=== PATIENT | female | born 1955 | race Caucasian/White ===

== ENCOUNTER 2019-08-11 11:08 | Inpatient (IN) | payer OTHER, SELFPAY ==
[2019-08-02 12:43] VITALS: BMI 31.3
[2019-08-11] VITALS (22 sets, daily range): BP systolic 151–192; BP diastolic 80–108; PULSE 70–89; RESP 1–20; TEMP 35.8–37; O2SAT 91–100; BMI 31.3
--- NOTE | 2019-08-11 | DI.RAD.S_ITS ---
PROCEDURE: XR CERVICAL SPINE 2V OR 3V INDICATIONS: C3-C6 ACDF WITH ANTERIOR INSTRUMENTATION TECHNIQUE: 2 view(s) of the cervical spine were acquired. COMPARISON: None. FINDINGS: Bones: No fractures or dislocations to the T1 level. The lateral masses of C1 appear intact on the odontoid view. No suspicious bony lesions. C3-C6 anterior fusion plate has been placed, with what appears to be interbody disc prosthesis device is at the intervening disc levels. Normal alignment is established. Soft tissues: No prevertebral soft tissue swelling. IMPRESSION: Normal alignment established through anterior fusion plating and interbody disc prosthesis placement, C3-C6 anteriorly. Dictated by: Humphrey Mittal M.D. on 08/11/2019 at 16:08 Approved by: Humphrey Mittal M.D. on 08/11/2019 at 16:10
[2019-08-11] MEDS: LACTATED RINGERS 1,000 ML 42 ML IV ×2 (11:47→15:16)
[2019-08-11] MEDS: CEFAZOLIN 2 GM/100 ML FROZ.PIGGY IV ×2 (12:55→21:30)
--- NOTE | 2019-08-11 13:33 | SUR.OPER ---
Supine, head on gel donut. Arms padded with gel pads, tucked at sides, towel roll under shoulders. Safety belt at thigh. Legs uncrossed.
[2019-08-11] MEDS: BUPIVACAINE 0.25% W/ EPI (PF) 10 ML VIAL 20 ML INJ (13:42)
[2019-08-11] MEDS: ACETAMINOPHEN IV 1,000 MG/100 ML VIAL 400 MG IV (15:15)
--- NOTE | 2019-08-11 16:01 | PM.OP.1 ---
Operative Date/Time/Diagnoses Date of procedure: 08/11/19 Time of procedure: 13:01 Pre-op diagnosis: 1. C3-4, C4-5, C5-6 spinal stenosis 2. C3-4, C4-5, C5-6 spondylosis with radiculopathy Post-op diagnosis: same Procedure & Clinicians Procedure: 1. C3-4, C4-5, C5-6 anterior cervical diskectomy and fusion 2. C3-4, C4-5, C5-6 anterior interbody cage placement 3. C3-4, C4-5, C5-6 anterior instrumentation with plate and screw placement in C4-C5-C6 and C7 vertebrae 4. Utilization of microsurgical technique and operating microscope Same procedure as scheduled: Yes Indications: Patient has been having chronic neck pain and worsening cervical radiculopathy. Patient failed multiple conservative management with worsening pain weakness and numbness in her upper extremity. Patient has been having difficulty performing activity of daily living. After discussing risks benefits of treatment options, patient elected proceed with surgery. Surgeon: Ivet Ayala Adzing And Boring Machine Helper: Neva Bradley Click Yes if Unassisted: No Anesthesia Type: General Operative Notes Closure Type: primary Specimen(s): none sent Prosthetic devices, grafts, tissues, transplants, or devices: Globus Extend plate, PEEK cages Applied: catheter Estimated Blood Loss (mL): 50 Blood products transfused: none Procedure in detail: Patient was seen in the preoperative area. Risks and benefits of the surgery was discussed with the patient. Operative consent was obtained and placed in the chart. Patient was then taken to the operative room. Prophylactic antibiotic was given less than 0.5 hr prior to skin incision. General anesthesia was administered. Patient was placed into a supine position on her radiolucent table. Bilateral shoulders were taped down to allow proper C-arm imaging. Anterior cervical area was prepped and draped in a sterile fashion. Time-out was performed at this time. Using lateral C-arm imaging, the level between C3 and C6 was identified and marked on patient's neck. A oblique incision from midline towards medial border of sternocleidomastoid muscle was made. The platysma muscle was incised in line with skin incision. Metzenbaum scissor was used to develop the plane between the medial border of sternocleidomastoid d and the strap muscles medially. The carotid sheath and its contents were identified and protected behind the hand-held retractor during the entire case. The plane between the carotid sheath and strap muscles was developed with Metzenbaum scissors. Dissection was made down to the level of the anterior cervical fascia. Longus colli muscle was incised on the anterior aspect of vertebral bodies bilaterally from C3-C6. Spinal needle was placed into the C3-4 disc space and confirmed with lateral C-arm imaging. Using microsurgical technique and operative microscope, anterior cervical diskectomy was performed at C3-4 C4-5 and C5-6 level. This was done by removing the disc material, removing the anterior and posterior osteophytes posterior longitudinal ligaments along with performing bilateral foraminotomies at all 3 levels. Patient was found to have severe central and foraminal stenosis at all 3 levels. Patient's stenosis was fully decompressed after decompression was completed. After the diskectomy was completed, 3 anterior interbody cages were obtained. The cages were packed with globus via cell bone grafting material. One cage each along with the bone grafting material was then packed into the interbody spaces from C3-C6 with one cage into each interbody level. After the cages were placed, the anterior cervical plate was stabilized to the C3-C6 vertebrae using 2 screws at each each level. Total 8 screws were placed. After confirming placement of the hardware with AP and lateral C-arm imaging, the screws were locked into the plate using the locking mechanism and torque limiting screwdriver. After the hardware was placed and confirmed with AP and lateral C-arm imaging, the wound was irrigated with sterile normal saline. The platysma muscle and the subcutaneous tissue was closed with 2-0 Vicryl. The skin was closed with 4-0 Monocryl and Steri-Strips. Patient tolerated the procedure well. Patient was transferred recovery room in stable condition. There were no complications. Complications: none Post-operative Condition: stable Disposition: PACU Plan for aftercare: Admit to inpatient hospital
[2019-08-11] MEDS: HYDROMORPHONE 2 MG INJ IV ×4 (16:19→16:35)
[2019-08-11] MEDS: hydrOXYzine 50 MG/ML INJ 25 MG IM (16:36)
[2019-08-11] MEDS: LORazepam 2 MG/ML INJ 0.5 MG IV (17:00)
[2019-08-11] MEDS: HYDROMORPHONE 0.5 MG INJ IV ×2 (17:49→23:56)
[2019-08-11] MEDS: SODIUM CHLORIDE 0.9% 1,000 ML 100 ML IV (17:50)
[2019-08-11] MEDS: OXYCODONE IR 5 MG TABLET 10 MG PO ×2 (18:21→21:29)
--- NOTE | 2019-08-11 18:23 | PC.NURSE ---
Pt arrived from PACU at 1735. A/Ox4. Rates pain 10/10. Medicated with 0.5 mg Dilaudid IV. BP elevated. 3L NC sats 96%. CPOX on. Drsg to ant neck c/d/i. Soft collar on. CMS+. Miller draining to gravity. Oriented to room and call system. Supportive spouse arrived. Belongings including C-Pap retrieved from PACU. Upon reassessment of Pain level remains elevated at 9/10; 10 mg oxycodone administered and ice pack to posterior neck. Plan to page provider if pain and BP is not improved upon reassessment.
[2019-08-11] MEDS: SENNOSIDES 8.6 MG TABLET 17.2 MG PO (21:29)
[2019-08-11] MEDS: DOCUSATE 100 MG CAPSULE PO (21:29)
--- NOTE | 2019-08-11 22:06 | PC.NURSE ---
Dr. Ayala notified for elevated BP. PRN order for hydralazine rec. awaiting pharm verfication.
[2019-08-11] MEDS: HYDRALAZINE 20 MG/ML VIAL 5 MG IV (22:40)
[2019-08-12 00:13] VITALS: BP 147/89; PULSE 71
[2019-08-12 00:15] VITALS: BP 147/89; PULSE 71; O2SAT 94
[2019-08-12] MEDS: OXYCODONE IR 5 MG TABLET 10 MG PO ×3 (00:41→08:19)
[2019-08-12] MEDS: HYDROMORPHONE 0.5 MG INJ IV (02:57)
[2019-08-12] MEDS: CEFAZOLIN 2 GM/100 ML FROZ.PIGGY IV (04:28)
[2019-08-12 04:45] VITALS: BP 153/72; PULSE 77; RESP 14; TEMP 37.1; O2SAT 97
[2019-08-12 08:00] VITALS: BP 152/81; PULSE 74; RESP 12; TEMP 36.6; O2SAT 97
[2019-08-12] MEDS: ACETAMINOPHEN 325 MG TABLET 650 MG PO (08:19)
[2019-08-12] MEDS: SODIUM CHLORIDE 0.9% FLUSH 10 ML IV (08:20)
[2019-08-12] MEDS: DOCUSATE 100 MG CAPSULE PO (08:20)
--- NOTE | 2019-08-12 10:22 | PT.IIE ---
Current Diagnoses Other spondylosis with radiculopathy, cervical region (08/11/19) Spinal stenosis, cervical region (08/11/19) Surgery Performed Operation Date: 08/11/19 13:15 Actual Procedures p C3-4,C4-5,C5-6 ACDF w/Anterior instrumentation - Ivet Ayala MD Surgical History (Last Updated 08/02/19 @ 13:08 by Ashley Santizo RN) History of cardiac radiofrequency ablation (Acute ~01/18/19) History of lumbar spinal fusion (Acute 08/10/14) History of lumbar surgery (Acute ~1985) History of total left hip arthroplasty (Acute ~2012) History of total right hip arthroplasty (Acute ~2013) Hx of cholecystectomy (Acute) Hx of laminectomy (Acute ~1982) Hx of tooth extraction (Acute ~04/2014) Status post trigger finger release (Acute ~2016) Medical History (Last Updated 08/02/19 @ 13:13 by Ashley Santizo RN) Arthritis (Acute) Depression (Acute) Diabetes (Acute) Fatty liver (Acute) GERD (gastroesophageal reflux disease) (Acute) HTN (hypertension) (Acute) MIGUEL A on CPAP (Acute) Osteoarthritis (Acute) PAF (paroxysmal atrial fibrillation) (Acute) Physical Therapy Inpatient Evaluation/Re-Eval M1 PT/OT-IP Prior Functional Status Start: 08/12/19 12:48 Freq: NEEDED Status: Active Protocol: Document 08/12/19 10:22 AB (Rec: 08/12/19 12:58 AB [id number]) Medical Review Prior Functional Status Medical History Reviewed Yes Communication able to make needs known Mobility and Gait pt stated that she is independent with all mobilities and ambulation without AD Social History Household Members spouse Living Arrangements House Number of Floors (Floors) One Floor Number of Stairs To Enter/Railing? 2 steps with R rail descending Home Environment High Toilet,Tub/Shower Home Equipment Front Wheel Walker Additional Social History Comment pt lives with spouse and can assist pt but a friend also will assist pt when spouse is at work M2 PT-IP Current Condition Start: 08/12/19 12:48 Freq: NEEDED Status: Active Protocol: Document 08/12/19 10:22 AB (Rec: 08/12/19 12:58 AB [id number]) Physical Therapy Current Condition Current Condition Evaluation Date 08/12/19 Treatment Diagnosis s/p C3-6 ACDF; difficulty in walking Onset Date 08/11/2019 Precautions Cervical Spine Precautions Soft Collar for Comfort,No Heavy Lifting,Log Roll M3 PT-IP Subjective Start: 08/12/19 12:48 Freq: NEEDED Status: Active Protocol: Document 08/12/19 10:22 AB (Rec: 08/12/19 12:58 AB [id number]) Subjective Physical Therapy Visit Type Type Initial Evaluation Visit Start Time 10:22 Visit Stop Time 10:44 Total Visit Minutes 22 Number of CAKE MAKER Visits 0 Physical Therapy Visit Comments Patient Comments pt agreeable to do PT Therapy Pain Assessment Pain When Pain Assessed At Rest Pain Present Pain Present Pain Reported Location Neck Intensity 7 Scale Used Numeric (1 - 10) Left Upper Arm Intensity 6 Scale Used Numeric (1 - 10) M4 PT-IP Mobility and Gait Start: 08/12/19 12:48 Freq: NEEDED Status: Active Protocol: Document 08/12/19 10:22 AB (Rec: 08/12/19 12:58 AB [id number]) PT-Bed Mobility Assessment Rolling Type of Rolling Log Rolling Level of Assist Independent Supine to Sit Supine to Sit Independent Sit to Supine Sit to Supine Independent PT-Transfer Assessment Sit to and From Stand Sit to and from Stand Independent Equipment Transfer Assistive Device Bed Rail Transfers Transfer Destination Bed,Toilet Transfer Technique ambulated without AD Transfer Ability Level of Assist Standby Assistance Comments Mobility Comments checked on pt and pt using the toilet. ambulated out of the toilet using FWW SBA and ambulated to the sink. completed handwashing and was able to maintain standing SBA. pt ambulated to the EOB SBA without AD. educated pt on precautions and log roll bed mobility and pt completed bed mobility independent. pt ambulated without AD to the sink. educated on soft collar management and pt was able to put soft collar on by herself. pt ambulated towards the stair without AD and completed. ambulated back to the room. pt sat on EOB and left with family in room. Gait Assessment Gait Gait Assistance Required: Standby Assistance Distance (Feet) 300 Able to Maintain Weight Bearing Status Yes During Gait Assistive Devices Assistive Device None,Gait Belt Orthotic/Prosthetic Devices or Brace: Yes Gait Deviations General Gait Pattern Within Normal Limits Factors Limiting Gait Function Factors Limiting Gait Function Limited Range of Motion,Pain Stair Climbing Assessment Evaluation Level of Assist On Stairs Standby Assistance Devices Stair Climbing Assistive Devices Left Railing Technique/Endurance Stair Climbing Direction Ascend and Descend Stair Climbing Technique Step to Step Number of Steps Climbed 3 Query Text: Stair Climbing Set # Repetitions (reps) 1 PT-Balance Assessment Sitting Balance and Reactions Static Sitting Balance Ability Normal Dynamic Sitting Balance Ability Normal Standing Balance and Reactions Static Standing Balance Ability Good Dynamic Standing Balance Ability Good Device Used without AD M5 PT-IP Objective Assessments Start: 08/12/19 12:48 Freq: NEEDED Status: Active Protocol: Document 08/12/19 10:22 AB (Rec: 08/12/19 12:58 AB [id number]) Orientation Orientation/Cognition Level of Alertness Alert Orientation Name,Age,Birthday,Month,Date, Year,Day of Week,Place, Situation Language Function Ability No Deficits Noted Safety Awareness Understands Safety Issues Memory Description No Deficits Noted Gross Range of Motion Lower Extremity ROM Assessment Within Functional Limits Strength Lower Extremity Strength Assessment Within Functional Limits Coordination Assessment Gross Coordination Gross Coordination WNL Muscle Tone Muscle Tone WNL Yes M6 PT-IP Treatment Start: 08/12/19 12:48 Freq: NEEDED Status: Active Protocol: Document 08/12/19 10:22 AB (Rec: 08/12/19 12:58 AB [id number]) Physical Therapy Treatment Education Education Provided Precautions,Post-Op Packet, Safety Brace Education Donning,[place],Patient M7 PT-IP Assessment and Plan Start: 08/12/19 12:48 Freq: NEEDED Status: Active Protocol: Document 08/12/19 10:22 AB (Rec: 08/12/19 12:58 AB [id number]) PT Summary Assessment and Plan Potential Rehabilitation Potential Excellent Status of Condition at Evaluation Stable Summary Impairments Pain,ROM,Strength,Balance,Bed Mobility,Transfers,Gait, Activity Tolerance Assessment Summary pt is doing well with mobility and plans to go home later today depending on pain control but pt may go home mobility licea with assist from family. Goals Transfer Goal Independent Gait Goal Independent Gait Distance 350 Other Goals up/down 3 steps 1 rail mod I Days to Meet Goals 3 Frequency of Treatment Frequency Of Treatment Twice a Day Treatment Plan Physical Therapy Treatment Plan Bed Mobility Training,Transfer Training,Gait Training, Therapeutic Exercise,Balance Retraining,Post Op Education, Discharge Planning,Hot or Cold Pack,Neuromuscular Re-ed, Coordination Retraining,Manual Therapy Recommendations To Nursing Amount of Assist Needed Standby Assistance Discharge Recommendations PT Discharge Recommendations Home with Assistance
--- NOTE | 2019-08-12 10:44 | PM.DS.1 ---
History of Present Illness History of Present Illness Date Patient Seen: 08/12/19 Time Patient Seen: 11:05 Chief complaint: [id number] Narrative: Please see HPI previously recorded in the chart. Discharge Providers Provider Date of admission: 08/11/19 11:08 Discharge Date: 08/12/19 Primary care physician: JEMMA Page Consults: 08/11/19 12:12 Consult to Respiratory Therapy Evaluate & Treat Comment: Physician Instructions: Evaluate and treat 08/11/19 17:37 Consult to Occupational Therapy Evaluate & Treat Comment: Physician Instructions: Evaluate and treat Consult to Physical Therapy Evaluate & Treat Comment: Physician Instructions: Evaluate and Treat Discharge provider: Neva Bradley PA-C Summary Hospital Course Discharge Diagnosis: s/p C3-4, C4-5, C5-6 ACDF Hospital Course: Patient is a 63 year old female who has been having chronic neck pain and worsening cervical radiculopathy. Patient failed multiple conservative management with worsening pain weakness and numbness in her upper extremity. Patient has been having difficulty performing activity of daily living. After discussing risks benefits of treatment options, patient elected proceed with surgery. After obtaining informed consent patient was taken to the operating room where she underwent a C3-4, C4-5, C5-[address] Ayala which she tolerated well with no complications. She was then transferred to the acute care floor where she has been progressing well post operatively. Pain was moderate to severe overnight, responded to Oxycodone and IV Dilaudid. Will transition to oral Dilaudid today and likely discharge home with this. She has mobilized with PT. She reported some discomfort with the dressing so this was changed. She has a soft cervical collar for comfort. She is stable for discharge to home later today. Status at Discharge Cognitive/behavioral status at discharge: oriented Functional status at discharge: uses cane/walker Overall status at discharge: patient is progressing back to baseline Exam Vital Signs (past 8 hours): - 08/12/19 04:45 08/12/19 08:00 Temperature 98.8 F 97.8 F Pulse Rate 77 74 Respiratory Rate 14 12 Blood Pressure 153/72 H 152/81 H Pulse Oximetry 97 97 Oxygen Delivery Method Nasal Cannula Oxygen Flow Rate 0 Narrative Exam Narrative: 63 year old female sitting upright in bed. Alert and oriented in no acute distress. Dressing in place over cervical spine was redressed due to patient discomfort. Inspector Hot Forgings strength is equal. Sensation intact to light touch in BUE. Discharge Plan Discharge Plan Patient Disposition: Home Discharge orders & Medications Prescriptions: New acetaminophen 325 mg Tablet 650 mg PO Q6HR PRN (Reason: Pain, Mild (1-3)) Qty: 40 RF: 0 hydromorphone 2 mg Tablet 2 mg PO Q4-6H PRN (Reason: Pain, Moderate (4-6)) Qty: 60 RF: 0 docusate sodium [DOK] 100 mg Capsule 100 mg PO BID Qty: 40 RF: 0 hydroxyzine pamoate 25 mg Capsule 25 mg PO Q4HR PRN (Reason: Nausea And Vomiting) Qty: 60 RF: 0 oxycodone 5 mg capsule 5 mg PO Q4-6H PRN (Reason: Pain, Severe (7-10)) Qty: 60 RF: 0 Continued aspirin 325 MG tablet 325 mg PO QDAY Qty: 0 RF: 0 Follow up/Referrals: Ivet Ayala MD [Physician] - Diet/Activity/Treatments Diet: Diet as Tolerated Activity: No bending, lifting, or twisting. Wear cervical collar for comfort. Cold/Heat Therapy: You may use ice packs as needed. Allow skin to return to room temperature between icing. Skin/Wound/Dressing Care Report to your healthcare provider any signs of infection, such as:: chills, fever, night sweats, unusual drainage and unusual redness Dressing: Dressing is to remain in place until your 2 week post operative visit. Please call the office if dressing becomes saturated or soiled. Visit Report/Discharge Packet Instructions: DI for Prescription Opioid Use, Hydromorphone, Hydroxyzine Discharge Data Primary Care Provider: Tennille Wilkinson
[2019-08-12] MEDS: HYDROMORPHONE 2 MG TABLET PO (11:04)
--- NOTE | 2019-08-12 11:43 | CM.DANOTE ---
DCP: Case received, EMR reviewed and met with patient. , Alfredo, also present in room. Introduced self and role. Was able to obtain baseline history and activity information from patient. DCP assessment completed with information currently available. Patient is a 63 year old female who admitted yesterday morning to the care of the orthopedic team. PCP: Dr. Wilkinson. Payer: confirmed: [facility] Ad[employer]age. Patient came to the hospital for a surgical procedure. She had C3-4, C-5, C5-6 Cervical Diskectomy and fusion. Waited to meet patient until late morning, for she was having some increased pain and discomfort with her neck bandage. Spoke to PAMechelle, who stated that patient should be discharged today if stable on pain. Nurse, Doris, was in room and mentioned that patient still needs to void, and need to ensure that her pain medication is working. Met with patient in her room. , Alfredo, also present. Patient is alert and oriented. Was laying in bed with her neck collar in place. Patient confirmed that she is independent at home, had already been walking witn P.T. She resides in [place] with her spouse. Stated that she has a friend named Emilia, who will also be helping her out while she is recuperating. Patient mentioned that she had the neck surgery, for she was also having pain that was radiating down her arm. P: Patient should be able to go home today as long as she is able to void, since her catheter was just removed. She was given more water to drink. Also need to ensure that pain medication is working. Elva Juarez RN/[facility]
--- NOTE | 2019-08-12 12:40 | PC.NURSE ---
Addendum entered by Bernice Blevins R.N. 08/12/19 14:18: returned. D/c instructions provided to pt and . aware of f/u apts with Dr Ayala's office. Pt states she is taking everything with her including her CPAP. aware to contact MD with any additional questions or concerns. left in w/c with [employer] escort. Original Note: Discharge Pt states pain is down to 8/10 after PO dilaudid. Spoke with pt and she stated that pain was better controlled with oxycodone that PO dilaudid. She states pain decreased more and lasted longer with oxy that dilaudid. She requested oxy for d/c Rx. This was provided for her. PO dilaudid Rx was ripped up and placed in shredder bin. Rx given to to go fill in town. He will return with pills for d/c.
[2019-08-12] MEDS: OXYCODONE IR 10 MG TABLET PO (14:08)
--- NOTE | 2019-08-12 14:20 | OT.IPNOTE ---
Attempted to see pt for OT eval. Pt states she has already been up and is able to do everything she needs to. Discussed home safety and equipment needs. No OT eval performed. Per P.T. pt was able to don pants and shoes and is mobilizing well at this time. Will discharge OT order.
== END 2019-08-12 14:15 | disposition home or self-care (01) | DRG 473 ==
PROVIDERS: Admitting Provider Orthopaedic Surgery Orthopaedic Surgery of the Spine; Family Provider Nurse Practitioner; PCP Nurse Practitioner; Visit Provider Orthopaedic Surgery Orthopaedic Surgery of the Spine
PROC: 0RG20A0 Fusion of 2 or more Cervical Vertebral Joints with Interbody Fusion Device, Anterior Approach, Anterior Column, Open Approach (ICD-10-PCS; principal; 2019-08-11 13:15)
DX: M48.02 Spinal stenosis, cervical region (principal); E11.9 Type 2 diabetes mellitus without complications; F32.9 Major depressive disorder, single episode, unspecified; M47.22 Other spondylosis with radiculopathy, cervical region; F17.210 Nicotine dependence, cigarettes, uncomplicated; E66.9 Obesity, unspecified; Z68.31 Body mass index [BMI] 31.0-31.9, adult
CPT/HCPCS: 72040; 76000; 97161; C1776; J0131; J0330; J0360; J0690; J1100; J1170; J2060; J2405; J2704; J3010; J3410

== ENCOUNTER → 2020-04-25 13:33 | Outpatient (CLI) | payer OTHER, SELFPAY ==
[2019-08-11 17:42] VITALS: BMI 31.3
--- NOTE | 2020-04-25 | DI.MRI.S_ITS ---
PROCEDURE: MR SHOULDER LT WO CON INDICATIONS: Other specified disorders of tendon, left shoulder TECHNIQUE: Noncontrast oblique coronal T2 fast spin echo with fat saturation, oblique sagittal T1 spin echo and T2 fast spin echo with fat saturation, axial T1 spin echo and T2 fast spin echo with fat saturation through the shoulder. COMPARISON: [facility], CR, XR SHOULDER 2+ VIEWS LEFT, 01/15/2020, 15:52. FINDINGS: Image quality: Excellent. Rotator cuff: There is full-thickness tearing of the mid/anterior supraspinatus tendon at the humeral insertion site measuring 17 mm anteroposterior. There is high-grade partial-thickness articular surface tearing of posterior supraspinatus tendon at the humeral insertion site extending to the musculotendinous junction measuring roughly 10 mm anteroposterior. Moderate supraspinatus atrophy is present. Teres minor tendon is intact. Infraspinatus tendon demonstrates low-grade partial-thickness tearing of its anterior, mid, and posterior aspect at the humeral insertion site extending to the musculotendinous junction. Subscapularis is intact. Bones and bursae: No bone marrow contusions or fractures. Severe acromioclavicular joint degeneration. The acromion demonstrates conventional anatomy, without an os acromiale. Small amount of subacromial-subdeltoid or subcoracoid bursal fluid is present. Capsule and soft tissues: Amorphous high signal intensity within the posterior and anterior labrum. The long head of the biceps tendon demonstrates normal location and moderate to high-grade tearing. The rotator interval appears normal, without fibrosis. The coracohumeral ligament is normal in thickness. IMPRESSION: 1. Full-thickness and high-grade partial-thickness tearing of the supraspinatus tendon as described above associated with supraspinatus atrophy. 2. Low-grade partial-thickness articular surface tearing of the infraspinatus tendon. 3. Acromioclavicular joint osteoarthritis. 4. Subacromial bursitis. 5. Glenoid labral tearing. 6. Partial thickness biceps tendon tear. Dictated by: Po Ovalles M.D. on 04/25/2020 at 15:42 Approved by: Po Ovalles M.D. on 04/25/2020 at 15:45
== END ==
PROVIDERS: Family Provider Nurse Practitioner; PCP Nurse Practitioner; Referring Provider Nurse Practitioner; Visit Provider Orthopaedic Surgery
DX: M67.814 Other specified disorders of tendon, left shoulder (principal); M75.122 Complete rotator cuff tear or rupture of left shoulder, not specified as traumatic; M19.012 Primary osteoarthritis, left shoulder; M75.52 Bursitis of left shoulder; S43.492A Other sprain of left shoulder joint, initial encounter; S46.112A Strain of muscle, fascia and tendon of long head of biceps, left arm, initial encounter
CPT/HCPCS: 73221

== ENCOUNTER 2020-05-23 06:15 | Day surgery (SDC) | payer OTHER, SELFPAY ==
[2019-08-11 17:42] VITALS: BMI 31.3
[2020-05-20 08:20] VITALS: BMI 31.3
[2020-05-23] VITALS (8 sets, daily range): BP systolic 133–159; BP diastolic 70–97; PULSE 59–69; RESP 14–94; TEMP 35.9–36.2; O2SAT 17–96; BMI 32.3
[2020-05-23] MEDS: LACTATED RINGERS 1,000 ML 42 ML IV (07:16)
--- NOTE | 2020-05-23 07:36 | PM.PREOP ---
Pre-operative Note COVID-19 COVID-19 status: Negative Result date/Date tested (Pos, Neg/Pending): 05/20/20 Interval Note History & Physical reviewed/Exam performed by Physician: Yes Changes to H&P: No
[2020-05-23] MEDS: MIDAZOLAM 2 MG/2 ML VIAL IV (07:52)
[2020-05-23] MEDS: fentaNYL 100 MCG/2 ML INJ 50 MCG IV (07:52)
[2020-05-23] MEDS: CEFAZOLIN 2 GM/100 ML FROZ.PIGGY IV (08:01)
--- NOTE | 2020-05-23 08:05 | SUR.PREOP ---
Block start time [0749] . Monitoring initiated and maintained throughout procedure. Oxygen and medications given per anesthesiologist instructions. Patient remained stable throughout procedure, no adverse reactions noted. Block end time [0756].
--- NOTE | 2020-05-23 08:06 | SUR.PREOP ---
Pt to OR in stable condition.
--- NOTE | 2020-05-23 08:44 | SUR.OPER ---
Beach chair with Maquet shoulder positioner. Lower body on padded OR bed. Head in foam padded head cradle, secured with straps. Non-operative arm secured <90 degrees abduction. Pillow under knees. Safety belt at thigh. Cloth tape over blanket over lower legs.
[2020-05-23] MEDS: BUPIVACAINE 0.5% W/ EPI (PF) 30 ML VIAL INJ (08:57)
[2020-05-23] MEDS: SODIUM CHLORIDE IRRIG SOLUTION 3,000 ML, EPINEPHrine 1 MG IRR (09:19)
--- NOTE | 2020-05-23 09:51 | P.OP_ITS ---
Operative Date/Time/Diagnoses Date of procedure: 05/23/20 Time of procedure: 08:00 Pre-op diagnosis: Left rotator cuff tear Post-op diagnosis: same Procedure & Clinicians Procedure: Left arthroscopic rotator cuff repair with subacromial decompression and debridement of the glenohumeral joint Same procedure as scheduled: Yes Indications: Left rotator cuff tear Surgeon: Shlomo Shepherd Corporate Relations Manager: Magalys Padilla Anesthesia Type: General and Peripheral nerve block Operative Notes Findings: Complete tear of most of the supraspinatus extending into the infraspinatus. Signs of a high-grade partial tearing also involving the infraspinatus. Early stage arthritic changes to the glenohumeral joint particularly the center of the glenoid. Degenerative changes to the labrum. Some tearing to the biceps but relatively minor. Sign of any significant tearing to the bicipital anchor. Quite a bit of synovitis and bursitis in the subacromial and subdeltoid space Closure Type: primary Specimen(s): none sent Applied: implant(s) (Four Arthrex anchors) Estimated Blood Loss (mL): 5 Blood products transfused: none Procedure in detail: On date of service, Patient was met in the holding area. The operative site was signed and witnessed by the OR staff. The surgeries once again discussed with the patient and any remaining questions they had were answered fully. Patient was taken back to the operating theater and placed on the operating table in a supine position. Great care was taken to ensure that all bony prominences were properly padded. Patient was then placed into the beach chair position. The head and neck were properly positioned and secured. A timeout was performed verifying patient's name, procedure, and the operative site. The upper extremity was then prepped and draped in the normal sterile fashion. Previously, the bony anatomy and portal sites were marked out as well as injected with Marcaine with epinephrine. An 11 blade was used to make an incision in the posterior aspect of the shoulder. The camera was placed, and a diagnostic shoulder scope was performed. Findings listed above. Next under direct visualization, a anterior portal was made. Shaver was brought in and extensive debridement of the degenerative changes to the labrum was performed. A grasper was used to remove the small loose body that was attached to the soft tissue in the anterior aspect of the shoulder joint. Some debridement of some degenerative changes of the proximal biceps was performed as well. Next the camera was placed into the subacromial space. A lateral portal was obtained under direct visualization. A combination of the shaver and vapor wand, a debridement of the inflamed tissue as well as inflamed bursa was performed. The lateral gutter was also cleaned out. There was a significant amount of bursitis and synovitis in both the subacromial and subdeltoid space. After this was all cleaned out, This gave us good visualization of the bursal aspect of the rotator cuff as well as the acromial arch. There was an obvious impingement lesion in the acromial arch. Next we turned our attention to the subacromial decompression. Next, a mechanical rasp was then used to do a subacromial decompression. This allowed us to convert the acromion to a type I acromial. This also allowed us to shave down the bony lesion in the acromial space. The rasp was placed into the lateral portal as well as the anterior portal in order to do a complete subacromial decompression. We next turned our attention to the distal clavicle. Using the shaver in the vapor wand we were able to clean out all the soft tissue around the distal clavicle as well as into the a.c. joint. This gave us good visualization of the arthritic changes to the distal clavicle as well as good of the a.c. joint allowing us to assess our distal clavicle excision. Of the inferior osteophytes coming off the distal clavicle. Using the mechanical rasp in the anterior portal, we were able to remove the inferior osteophytes as well as do a distal clavicle excision. The camera was then placed into the anterior portal which gave us a direct visualization of the a.c. joint allowing us to assess the distal clavicle excision. We then turned our attention to the rotator cuff tear. Patient had a very large tear involving the rotator cuff. Most of the supraspinatus and extending into the anterior portion of the infraspinatus was torn from the greater tuberosity and retracted about 1 cm. Due to the acute nature of the tear the cuff was still very mobile and had not scarred in at all. We could very easily pull it back to the rotator cuff footprint. Using the bur, the rotator cuff footprint was decorticated down to bleeding bone. Next, 2 medial anchors were placed. One anteriorly 1 posteriorly. Each anchor had 2 strands of fiber tape for a speed bridge repair. The sutures from the posterior anchor were passed through the posterior aspect of the infraspinatus. Then the sutures from the anterior anchor was passed through the anterior aspect of the supraspinatus. When pulling on the sutures we were able to reduce both the supraspinatus and infraspinatus to their respective footprints. Next, a punch was used to make a hole in the bone for the 2 medial anchors. This was done also anteriorly and posteriorly. A single suture from the anterior medial anchor and a single suture from the posterior medial anchor were placed into the anterior lateral anchor allowing us to tenodesis the rotator cuff across the rotator cuff footprint for the supraspinatus. This was then repeated with the remaining suture both anteriorly and posteriorly. And these 2 sutures were placed into the posterior medial anchor and tenodesis posteriorly providing a crisscross pattern providing a secure repair of both the supraspinatus and infraspinatus. Before the row repair most of the humeral head was exposed. After the repair there was good coverage of the entire humeral head and a very secure repair of the rotator cuff. Shoulder was taken through range of motion and there was no sign of any other tearing. No sign of any impingement lesions. Camera and cannulas were removed. Portal sites were closed. Patient's shoul devonte was cleaned, dried, and dressed. Patient was extubated and taken to the PACU in stable condition. Complications: none Post-operative Condition: stable Disposition: PACU Plan for aftercare: Patient follow her postoperative protocol for rotator cuff r epair
[2020-05-23] MEDS: OXYCODONE IR 5 MG TABLET PO (10:18)
== END 2020-05-23 10:50 | disposition home or self-care (01) ==
PROVIDERS: Family Provider Nurse Practitioner; PCP Nurse Practitioner; Referring Provider Nurse Practitioner; Visit Provider Orthopaedic Surgery
PROC: (CPT 29827; principal; 2020-05-23 07:45)
DX: M75.112 Incomplete rotator cuff tear or rupture of left shoulder, not specified as traumatic (principal); M75.42 Impingement syndrome of left shoulder; I10 Essential (primary) hypertension; E11.9 Type 2 diabetes mellitus without complications; F32.9 Major depressive disorder, single episode, unspecified; I48.91 Unspecified atrial fibrillation; M75.52 Bursitis of left shoulder; M65.812 Other synovitis and tenosynovitis, left shoulder; M24.012 Loose body in left shoulder
CPT/HCPCS: 29827; 29826; 29823; 29824; 64450; J0171; J0690; J2250; J3010

== ENCOUNTER 2021-01-16 10:15 | Emergency (ER) | payer OTHER, SELFPAY ==
[2019-08-11 17:42] VITALS: BMI 31.3
[2021-01-16 10:20] VITALS: BP 167/79; PULSE 74; RESP 18; TEMP 36.8; O2SAT 97; BMI 34.8
--- NOTE | 2021-01-16 10:36 | DI.US.S_ITS ---
PROCEDURE: US PERIPH VENOUS LOW EXTREM RT INDICATIONS: swelling/pain/bruising TECHNIQUE: Real-time imaging, as well as color and pulse Doppler interrogation, were performed of the lower extremity deep veins from the inguinal ligament to the popliteal fossa. COMPARISON: None. FINDINGS: The common femoral, femoral and popliteal veins are normally compressible, and free of intraluminal thrombus. Color and pulse Doppler demonstrate normal phasic intraluminal flow. There is normal augmentation response to distal compression maneuver. There is a focus of heterogeneous echogenicity within the upper calf measuring 8.3 x 1.2 cm. IMPRESSION: 1. No deep venous thrombosis. 2. Heterogeneous echogenicity within the upper calf, possibly related to hematoma. Other etiologies can include seroma or abscess. Clinical correlation is recommended. Dictated by: Charlee Starr M.D. on 01/16/2021 at 11:39 Approved by: Charlee Starr M.D. on 01/16/2021 at 11:41
--- NOTE | 2021-01-16 11:50 | ED_ITS ---
HPI - Extremity Problem General Chief complaint: Extremity Problem,Nontraumatic Stated complaint: right leg pain, bruising, poss blood clot Time Seen by Provider: 01/16/21 11:47 Source: patient Mode of arrival: Ambulatory Limitations: no limitations History of Present Illness HPI Narrative: patient is a 65-year-old female with prior history of atrial fibrillation on aspirin presenting with 4-5 days of right lower leg pain. sHe states that she was gardening, but she does not remember any injury. She started noticing increasing swelling yesterday and certainly increased pain. Last night she noted she had a bruise on her right posterior all leg. She elevated and iced it last night she is able to ambulate better today than yesterday. She denies any chest pain or shortness of breath. MD Complaint: extremity pain and extremity swelling Onset (ago): day(s) Location: right and lower extremity Related Data Home Medications Medication Instructions Recorded Confirmed aspirin 325 mg PO QDAY #0 07/22/17 05/23/20 Previous Rx's Medication Instructions Recorded hydroxyzine pamoate [Vistaril] 25 mg PO TID-QID PRN #60 cap 05/23/20 oxycodone-acetaminophen [Percocet] 2 tab PO Q4-6H PRN #60 tab 05/23/20 Allergies Allergy/AdvReac Type Severity Reaction Status Date / Time flecainide AdvReac Severe V-TACH Verified 08/11/19 11:52 Review of Systems Review of Systems Narrative: GENERAL: Denies chills,fever HEENT: Denies throat pain RESPIRATORY: Denies dyspnea, cough, wheezing CARDIOVASCULAR: Denies chest pain, palpitations GASTROINTESTINAL: Denies nausea, vomiting MUSCULOSKELETAL: See HPI SKIN: No rash, no laceration, no pruritus NEUROLOGIC: Denies weakness, dizziness, headache, numbness 8 point review of systems is negative except for those stated above and HPI Patient History Medical History (Updated 01/16/21 @ 12:11 by Radha Motley DO) Arthritis Depression Diabetes Fatty liver GERD (gastroesophageal reflux disease) HTN (hypertension) MIGUEL A on CPAP Osteoarthritis PAF (paroxysmal atrial fibrillation) Surgical History (Updated 05/20/20 @ 08:28 by Ashley Santizo RN) History of cardiac radiofrequency ablation (~01/18/19) History of lumbar spinal fusion (08/10/14) History of lumbar surgery (~1985) History of total left hip arthroplasty (~2012) History of total right hip arthroplasty (~2013) Hx of cholecystectomy Hx of fusion of cervical spine (08/11/19) Hx of laminectomy (~1982) Hx of tooth extraction (~04/2014) Status post trigger finger release (~2016) Social History household members: spouse Smoking Status: Current every day smoker alcohol intake: current Smoking Status: Current every day smoker alcohol intake frequency: 3 or more drinks per day Substance Use Type: marijuana Exam Initial Vital Signs Initial Vital Signs: Vital Signs Temperature 98.2 F 01/16/21 10:20 Pulse Rate 74 01/16/21 10:20 Respiratory Rate 18 01/16/21 10:20 Blood Pressure 167/79 H 01/16/21 10:20 Pulse Oximetry 97 01/16/21 10:20 GENERAL: Well-appearing, well-nourished and in no acute distress. CARDIOVASCULAR: peripheral pulses in tact, cap refill <2 sec RESPIRATORY: No respiratory distress, speaks in full sentences without difficulty EXTREMITIES: Normal range of motion, no clubbing or edema. Neurovascularly intact Right lower extremity is obviously more swollen than the left. Tender posterior calf but are also large contusion is seen on the posterior calf. Distal pedal pulse intact. Able to plantar flex and dorsiflex without difficulty. Achilles tendon intact. Knee is stable. NEUROLOGICAL: Cranial nerves II through XII grossly intact. Normal gait and speech. SKIN: Warm, dry, no petechiae, no rashes or lesions. Course Orders Ordered: ED Orders 01/16/21 10:36 US periph venous low extrem rt Stat Vital Signs Vital signs: Vital Signs - 8 hr 01/16/21 12:02 Temperature 98.4 F Pulse Rate 64 Blood Pressure 174/80 H Pulse Oximetry 96 MDM - Extremity (Nontraumatic) Imaging Data US - DVT: Radiologist's Impression: PROCEDURE: US PERIPH VENOUS LOW EXTREM RT INDICATIONS: swelling/pain/bruising TECHNIQUE: Real-time imaging, as well as color and pulse Doppler interrogation, were performed of the lower extremity deep veins from the inguinal ligament to the popliteal fossa. COMPARISON: None. FINDINGS: The common femoral, femoral and popliteal veins are normally compress ible, and free of intraluminal thrombus. Color and pulse Doppler demonstrate normal phasic intraluminal flow. There is normal augmentation response to distal compression maneuver. There is a focus of heterogeneous echogenicity within the upper calf measuring 8.3 x 1.2 cm. IMPRESSION: 1. No deep venous thrombosis. 2. Heterogeneous echogenicity within the upper calf, possibly related to hematoma. Other etiologies can include seroma or abscess. Clinical correlation is recommended. Dictated by: Charlee Starr M.D. on 01/16/2021 at 11:39 MDM Narrative Medical decision making narrative: Patient found having contusion right posterior calf however is unclear exactly how that. However suspect that this is what is causing the swelling pain. Ultrasound is negative. Nonetheless I recommend she have compression stocking along with repeat ultrasound next week. She understands and will follow her primary care provider Discharge Plan Departure Patient Disposition: Home Clinical Impression: Hematoma Instructions: DI for Hematoma (Bruise) Activity Restrictions/Additional Instructions: *You have been diagnosed with hematoma right leg *What to do: At this time I believe the swelling in your legs related to bruise. However not sure how the bruise got there. Recommend compression stocking elevation and ice. He will also likely need repeat ultrasound next week. *Continue to take medications as directed Tylenol 650 mg every 4-6 hours if needed for [id number] pain Ibuprofen 600 mg every 6 hours if needed for [id number] pain *Follow up with your primary care provider in 2-3 days *Return to ER if you should have increasing swelling, redness, inability to ambulate or any new, worsening or concerning symptoms Prescriptions: No Action aspirin 325 MG tablet 325 mg PO QDAY Qty: 0 RF: 0 oxycodone-acetaminophen [Percocet] 5-325 mg tablet 2 tab PO Q4-6H PRN (Reason: pain) Qty: 60 RF: 0 hydroxyzine pamoate [Vistaril] 25 mg capsule 25 mg PO TID-QID PRN (Reason: spasms) Qty: 60 RF: 0 Referrals: Tennille Wilkinson ARNP [Primary Care Provider] -
[2021-01-16 12:02] VITALS: BP 174/80; PULSE 64; TEMP 36.9; O2SAT 96
== END 2021-01-16 12:17 | disposition home or self-care (01) ==
PROVIDERS: Emergency Provider Emergency Medicine; Family Provider Nurse Practitioner; PCP Nurse Practitioner
DX: S80.11XA Contusion of right lower leg, initial encounter (principal)
CPT/HCPCS: 93971; 99283

== ENCOUNTER → 2021-09-10 13:57 | Outpatient (CLI) | payer OTHER, SELFPAY ==
[2019-08-11 17:42] VITALS: BMI 31.3
[2021-09-10 15:46] LABS: Add Manual Diff / Slide Review NO; Basophils Absolute Auto 0 /uL (0-100); Basophils Percent Auto 0.2 % (0-2); Eosinophils Absolute Auto 100 /uL (0-450); Eosinophils Percent Auto 1.7 % (2-4); Hematocrit 42.5 % (36-46); Hemoglobin 14.7 g/dL (12.0-16.0); Lymphocytes Absolute Auto 1800 /uL (1100-4500); Lymphocytes Percent Auto 29.2 % (25-40); Mean Corpuscular HGB Conc 34.7 % (30-36); Mean Corpuscular Hemoglobin 32.7 PG (26-34); Mean Corpuscular Volume 94.4 fL (80-100); Monocytes Absolute Auto 400 /uL (0-900); Monocytes Percent Auto 6.4 % (3-14); Neutrophils Absolute Auto 3900 /uL (1500-7000); Neutrophils Percent Auto 62.5 % (50-75); Platelet Count 174 X10^3/uL (150-400); Red Cell Distribution Width 12.8 % (11.6-14.8); White Blood Cell Count 6.3 X10^3/uL (4.5-11.0)
[2021-09-10 15:52] LABS: Hemoglobin A1C% w Est Avg Glu 6.4 % (4.0-6.0)
[2021-09-10 16:15] LABS: BUN Creatinine Ratio 22.1 (6-22); Blood Urea Nitrogen 15 mg/dL (7-17); Calcium 9.9 mg/dL (8.4-10.2); Carbon Dioxide 27 mmol/L (22-32); Chloride 104 mmol/L (98-107); Estimated Glomerular Filt Rate > 60.0 mL/min (>60); Glucose 159 mg/dL (80-110); HEMOLYSIS < 15 (0-50); Potassium 4.2 mmol/L (3.4-5.1); Sodium 137 mmol/L (137-145)
== END ==
PROVIDERS: Family Provider Nurse Practitioner; PCP Nurse Practitioner; Referring Provider Orthopaedic Surgery; Visit Provider Orthopaedic Surgery
DX: Z01.818 Encounter for other preprocedural examination (principal); R73.9 Hyperglycemia, unspecified; Z01.812 Encounter for preprocedural laboratory examination
CPT/HCPCS: 36415; 80048; 83036; 85025; 93005; 93010

== ENCOUNTER 2024-10-08 13:03 | Emergency (ER) | payer OTHER, SELFPAY ==
[2019-08-11 17:42] VITALS: BMI 31.3
[2024-10-08 13:08] VITALS: PULSE 88; O2SAT 95
[2024-10-08 13:10] VITALS: BP 190/90; PULSE 82; RESP 18; TEMP 36.9; O2SAT 94; BMI 38.0
--- NOTE | 2024-10-08 13:11 | EKG_ITS ---
[facility] [id number] [place] [id number] Test Date: 2024-10-08 Pat Name: Adriana Rubio Department: Room: Gender: Female Room Service Server: PLACIDO : [id number] Requested By: Order Number: [id number] Reading MD: Davdi Velasquez Measurements Intervals [place] Rate: 81 P: 71 WV: 170 QRS: 41 QRSD: 96 T: 107 QT: 400 QTc: 464 Interpretive Statements Normal sinus rhythm ST & T wave abnormality, consider lateral ischemia Electronically Signed On 10-09-2024 7:44:03 PDT by David Velasquez
--- NOTE | 2024-10-08 13:13 | DI.RAD.S_ITS ---
PROCEDURE: XR CHEST 1V INDICATIONS: chest pain TECHNIQUE: One view of the chest was acquired. COMPARISON: [facility], , CHEST 1 VIEW, 06/07/2017, 0:37. FINDINGS: Surgical changes and devices: Post ACDF changes are noted in visualized lower cervical spine. Lungs and pleura: Lungs are clear. No pleural effusions or pneumothorax. Mediastinum: Mediastinal contours appear normal. Heart size is normal. Bones and chest wall: No suspicious bony lesions. Overlying soft tissues appear unremarkable. IMPRESSION: No acute cardiopulmonary pathology. Dictated by: Andrew Johnston M.D. on 10/08/2024 at 13:25 Approved by: Andrew Johnston M.D. on 10/08/2024 at 13:25
[2024-10-08 13:16] VITALS: BP 174/93; PULSE 81; RESP 20; O2SAT 96
[2024-10-08 13:25] LABS: Add Manual Diff / Slide Review NO; Basophils Absolute Auto 0 /uL (0-100); Basophils Percent Auto 0.3 % (0-2); Eosinophils Absolute Auto 100 /uL (0-450); Hematocrit 45.4 % (36-46); Hemoglobin 15.7 g/dL (12.0-16.0); Lymphocytes Absolute Auto 2100 /uL (1100-4500); Lymphocytes Percent Auto 32.1 % (25-40); Mean Corpuscular HGB Conc 34.6 % (30-36); Mean Corpuscular Hemoglobin 33.3 PG (26-34); Mean Corpuscular Volume 96.1 fL (80-100); Monocytes Absolute Auto 400 /uL (0-900); Monocytes Percent Auto 6.3 % (3-14); Neutrophils Absolute Auto 3800 /uL (1500-7000); Neutrophils Percent Auto 59.3 % (50-75); Platelet Count 193 X10^3/uL (150-400); Red Blood Cell Count 4.73 X10^6/uL (4.0-5.2); Red Cell Distribution Width 12.4 % (11.6-14.8); White Blood Cell Count 6.5 X10^3/uL (4.5-11.0)
[2024-10-08 13:30] VITALS: BP 164/74; PULSE 70; RESP 20; O2SAT 94
[2024-10-08 13:32] LABS: INR 0.9 (0.9-1.3); Prothrombin Time 10.5 SECONDS (9.4-12.5)
[2024-10-08 13:34] LABS: PTT Partial Thromboplastin Tim 34 SECONDS (25.1-36.5)
[2024-10-08 13:36] LABS: Alanine Aminotransferase 48 IU/L (<35); Albumin 4.4 g/dL (3.5-5.0); Albumin Globulin Ratio 1.5 (1.0-2.8); Alkaline Phosphatase 129 U/L (38-126); Aspartate Aminotransferase 49 IU/L (14-36); Bilirubin Total 0.8 mg/dL (0.2-1.3); Blood Urea Nitrogen 12 mg/dL (7-17); Calcium 9.8 mg/dL (8.4-10.2); Carbon Dioxide 25 mmol/L (22-32); Chloride 102 mmol/L (98-107); Creatine Kinase 84 U/L (30-135); Estimated Glomerular Filt Rate > 60 mL/min (>60); Globulin 2.9 g/dL (1.7-4.1); Glucose 254 mg/dL (80-110); HEMOLYSIS < 15 (0-50); Lipase 75 U/L (23-300); Sodium 136 mmol/L (137-145); Total Protein 7.3 g/dL (6.3-8.2)
[2024-10-08 13:47] LABS: NT-proBNP (BNP-Adult 18+) 117 pg/mL (<125); Troponin I < 0.012 ng/mL (0.01-0.034)
[2024-10-08 14:00] VITALS: BP 160/76; PULSE 66; RESP 19; O2SAT 97
--- NOTE | 2024-10-08 14:14 | ED.ARRPALP ---
HPI - Arrhythmia/Palpitations General Chief Complaint: Arrhythmia/Palpitations Stated Complaint: Afib Time Seen by Provider: 10/08/24 13:38 History of Present Illness HPI narrative: 68-year-old woman with a history of atrial fibrillation post ablation approximately 5 years ago continuing with aspirin presents today complaining of 24 hours of a fluttering feeling in her chest and is concerned that she has recurrent atrial fibrillation. She notes that she has gone through a very severe depression for the last 4 years has barely been out of the house, has not seen her physician for approximately 4 years also notes that she is having some intermittent left side pain. She is started going back to the pool, still is somewhat tearful with discussion of mood, willing to reestablish care with her physician has questions about blood pressure and A1c. She has not having any shortness of breath, exertional dyspnea, headaches lower extremity edema Related Data Home Medications Medication Instructions Recorded Confirmed aspirin 325 mg tablet 325 mg PO QDAY ##0 07/22/17 05/23/20 Previous Rx's Medication Instructions Recorded hydroxyzine pamoate 25 mg capsule 25 mg PO TID-QID PRN spasms #60 05/23/20 (Vistaril) caps oxycodone-acetaminophen 5 mg-325 2 tab PO Q4-6H PRN pain #60 tabs 05/23/20 mg tablet (Percocet) Allergies Allergy/AdvReac Type Severity Reaction Status Date / Time flecainide AdvReac Severe V-TACH Verified 08/11/19 11:52 Review of Systems Review of Systems Narrative: Pertinent positive and negative findings as per HPI Patient History Medical History Osteoarthritis Fatty liver Diabetes GERD (gastroesophageal reflux disease) MIGUEL A on CPAP PAF (paroxysmal atrial fibrillation) HTN (hypertension) Depression Arthritis Surgical History Hx of fusion of cervical spine (08/11/19) Status post trigger finger release (~2016) History of cardiac radiofrequency ablation (~01/18/19) Hx of tooth extraction (~04/2014) Hx of cholecystectomy Hx of laminectomy (~1982) History of total left hip arthroplasty (~2012) History of total right hip arthroplasty (~2013) History of lumbar surgery (~1985) History of lumbar spinal fusion (08/10/14) Social History household members: spouse Smoking Status: Current every day smoker alcohol intake: current Smoking Status: Current every day smoker alcohol intake frequency: 3 or more drinks per day Exam Initial Vital Signs Initial Vital Signs: Vital Signs Pulse Rate 88 10/08/24 13:08 Pulse Oximetry 95 10/08/24 13:08 General: Healthy appearing, in no acute distress. Able to give a complete and coherent history. Well-nourished well-developed HEENT: Moist mucous membranes, normal sclera with reactive pupils, Respiratory: Lungs are clear to auscultation, no wheezing no rales no rhonchi. Full and symmetrical air movement Cardiac: Regular rate and rhythm no murmurs no bruits Abdomen: Soft, nontender, no rebound or guarding, no flank pain. Area of pain is point tenderness along the skin left side approximately waist level with no rashes, underlying abnormalities or significant concerns Skin: Warm and dry, no rashes Neurologic: Grossly neurologically intact with no obvious asymmetries or abnormalities Extremities: No trauma, well perfused Psych: Cooperative, flat affect but making eye contact, fluent speech, appropriate thought process Course Orders Ordered: ED Orders 10/08/24 13:13 XR chest 1V Stat EKG-12 Lead Stat 10/08/24 13:16 Complete Blood Count AUTO DIFF Stat Comprehensive Metabolic Panel Stat Lipase Stat Magnesium Stat NT-proBNP (BNP-Adult 18+) Stat PTT Partial Thromboplastin Valente Stat Prothrombin Time INR Stat Troponin & CK Cardiac Panel Stat Discontinued Medications Aspirin (Aspirin 81 Mg Chew Tab) 324 mg PO NOW ONE Stop: 10/08/24 13:14 Last Admin: 10/08/24 13:21 Dose: Not Given Documented By: SB Vital Signs Vital signs: Vital Signs - 8 hr 10/08/24 13:08 10/08/24 13:10 10/08/24 13:16 Temperature 98.5 F Pulse Rate 88 82 Respiratory Rate 18 Blood Pressure 190/90 H 174/93 H Pulse Oximetry 95 94 Oxygen Delivery Method Room Air 10/08/24 13:16 10/08/24 13:30 10/08/24 13:30 Temperature Pulse Rate 81 70 Respiratory Rate 20 20 Blood Pressure 164/74 H Pulse Oximetry 96 94 Oxygen Delivery Method MDM - Arrhythmia/Palpitations Lab Data 10/08/24 13:16 10/08/24 13:16 Labs: Lab Results 10/08/24 Range/Units 13:16 WBC 6.5 (4.5-11.0) X10^3/uL RBC 4.73 (4.0-5.2) X10^6/uL Hgb 15.7 (12.0-16.0) g/dL Hct 45.4 (36-46) % MCV 96.1 (80-100) fL MCH 33.3 (26-34) PG MCHC 34.6 (30-36) % RDW 12.4 (11.6-14.8) % Plt Count 193 (150-400) X10^3/uL Neut % (Auto) 59.3 (50-75) % Lymph % (Auto) 32.1 (25-40) % [place] % (Auto) 6.3 (3-14) % Eos % (Auto) 2.0 (2-4) % Baso % (Auto) 0.3 (0-2) % Neut # (Auto) 3800 (8997-7908) /uL Lymph # (Auto) 2100 (7331-7606) /uL [place] # (Auto) 400 (0-900) /uL Eos # (Auto) 100 (0-450) /uL Baso # (Auto) 0 (0-100) /uL PT 10.5 (9.4-12.5) SECONDS INR 0.9 (0.9-1.3) APTT 34 (25.1-36.5) SECONDS Sodium 136 L (137-145) mmol/L Potassium 4.0 (3.4-5.1) mmol/L Chloride 102 (98-107) mmol/L Carbon Dioxide 25 (22-32) mmol/L BUN 12 (7-17) mg/dL Creatinine 0.60 (0.52-1.04) mg/dL Estimated GFR > 60 (>60) mL/min BUN/Creatinine Ratio 20.0 (6-22) Glucose 254 H (80-110) mg/dL Calcium 9.8 (8.4-10.2) mg/dL Magnesium 2.0 (1.6-2.3) mg/dL Total Bilirubin 0.8 (0.2-1.3) mg/dL AST 49 H (14-36) IU/L ALT 48 H (<35) IU/L Alkaline Phosphatase 129 H (38-126) U/L Total Creatine Kinase 84 (30-135) U/L Troponin I < 0.012 (0.01-0.034) ng/mL NT-Pro-B Natriuret Pep 117 (<125) pg/mL Total Protein 7.3 (6.3-8.2) g/dL Albumin 4.4 (3.5-5.0) g/dL Globulin 2.9 (1.7-4.1) g/dL Albumin/Globulin Ratio 1.5 (1.0-2.8) Lipase 75 (23-300) U/L MDM Narrative Medical decision making narrative: CC: Palpitations Complicating co-morbidities: Prior atrial fibrillation post cardiac ablation Data collected from: patient Social determinants of health that may influence the patients condition: Self-described ?depression for 4 years and have not been out of the house Medical records reviewed: Hospital discharge from August 12, 2019 regarding hospitalization for atrial fibrillation is reviewed Differential considered: Paroxysmal atrial fibrillation, acute coronary syndrome, PACs/PVCs, V-tach Exam documented above, pertinent findings include: Other Than her flat affect her exam is actually quite reassuring Lab Test results independently reviewed as above. Pertinent findings: CBC is unremarkable Metabolic panel shows normal renal function, glucose elevated at 254 Liver studies show AST is slightly elevated at 49, ALT at 48, alk-phos at 129. bilirubin normal at 0.8 Troponin is undetectable ProBNP is low Lipase is normal Independently reviewed EKG: Sinus rhythm at a rate of 81. Wandering baseline no obvious ischemia Imaging studies independently reviewed: Chest x-ray is unremarkable Discussion: 60-year-old woman with a history of paroxysmal atrial fibrillation post cardiac ablation noting some irregular heartbeats today worried that she was back in AFib. She is not back in AFib. There was no sign of congestive heart failure or reason for hospitalization at this time. There are multiple outpatient primary issues that do need to be addressed and I have encouraged her to follow up with her primary care provider, Tennille Wilkinson. 1. Hypertension, not currently on medications. Willing to buy a blood pressure cuff and check numbers prior to following up with her primary care provider 2. Elevated blood sugar above 250, A1c is added she believe she probably is diabetic as ?her diet is not as good as it used to be? 3. Depression, will likely benefit from medications as well as therapy Patient is safe for discharge home with the Discharge Plan Departure Patient Disposition: Home Clinical Impression: Palpitations, Elevated blood pressure reading, Elevated random blood glucose level Depression Qualifiers: Depression Type: other depression Qualified Code(s): F32.89 - Other specified depressive episodes Activity Restrictions/Additional Instructions: I am so glad you chose to come to the emergency department today. It sounds like the last 4 years have been extremely difficult. The palpitations that you notice today are not atrial fibrillation, your EKG is reassuring, your blood work related to your heart is reassuring. Please do continue your daily aspirin I would strongly encourage you to schedule a follow up appointment with Tennille Wilkinson. If she has not available, you can contact [facility] resource line at [phone]. They can help get you set up with a physician in our local community There couple of chronic issues that you need to better address includin. Elevated blood pressure. I would strongly recommend you do get a blood pressure cuff and keep track of the readings so when you talk to your provider they will have actual data to work with to make recommendations 2. Probable diabetes. You had a single blood sugar that was over 250, I have added a hemoglobin A1c to your blood work today to be followed up by your primary care physician. Consider getting back to the healthy diet you described previously. Healthy diet we will help your heart, your mood, your blood pressure, your diabetes and your overall well-being 3. Depression. It sounds like you simply pulled your herself through the dramatic worst of it. There are options for help including medications and counseling. Getting back to the pool 3 times a week as you have started doing is an excellent for step If you find that you are getting worse or develop any new symptoms, please feel free to return to the emergency department for further evaluation. Prescriptions: No Action aspirin 325 MG tablet 325 mg PO QDAY Qty: 0 oxycodone-acetaminophen [Percocet] 5-325 mg tablet 2 tab PO Q4-6H PRN (Reason: pain) Qty: 60 0RF hydroxyzine pamoate [Vistaril] 25 mg capsule 25 mg PO TID-QID PRN (Reason: spasms) Qty: 60 0RF Referrals: Tennille Wilkinson ARNP [Primary Care Provider] - Stand Alone Forms: Patient Portal/API/Survey
[2024-10-08 14:50] LABS: Hemoglobin A1C% w Est Avg Glu 6.8 % (4.0-6.0)
== END 2024-10-08 14:49 | disposition home or self-care (01) ==
PROVIDERS: Emergency Provider Emergency Medicine; Family Provider Nurse Practitioner; PCP Nurse Practitioner
DX: R00.2 Palpitations (principal); F32.89 Other specified depressive episodes; Z86.79 Personal history of other diseases of the circulatory system; R73.02 Impaired glucose tolerance (oral)
CPT/HCPCS: 36415; 71045; 80053; 82550; 83036; 83690; 83735; 83880; 84484; 85025; 85610; 85730; 93005; 99283; 99284

== ENCOUNTER → 2025-02-12 10:16 | Outpatient (CLI) | payer OTHER, SELFPAY ==
[2019-08-11 17:42] VITALS: BMI 31.3
[2025-02-12 11:37] LABS: Hemoglobin A1C% w Est Avg Glu 5.4 % (4.0-6.0)
[2025-02-12 11:48] LABS: Alanine Aminotransferase 33 IU/L (<35); Albumin 4.5 g/dL (3.5-5.0); Albumin Globulin Ratio 1.8 (1.0-2.8); Alkaline Phosphatase 98 U/L (38-126); Blood Urea Nitrogen 11 mg/dL (7-17); Calcium 10.0 mg/dL (8.4-10.2); Carbon Dioxide 26 mmol/L (22-32); Chloride 102 mmol/L (98-107); Estimated Glomerular Filt Rate > 60 mL/min (>60); Globulin 2.5 g/dL (1.7-4.1); Glucose 138 mg/dL (70-99); HEMOLYSIS 25 (0-50); Potassium 4.4 mmol/L (3.4-5.1); Sodium 136 mmol/L (137-145); Total Protein 7.0 g/dL (6.3-8.2)
== END ==
PROVIDERS: Family Provider Nurse Practitioner; PCP Nurse Practitioner; Referring Provider Nurse Practitioner; Visit Provider Nurse Practitioner
DX: E11.9 Type 2 diabetes mellitus without complications (principal)
CPT/HCPCS: 36415; 80053; 83036

== ENCOUNTER 2025-06-22 03:13 | Emergency (ER) | payer OTHER, SELFPAY ==
[2019-08-11 17:42] VITALS: BMI 31.3
[2025-06-22] VITALS (9 sets, daily range): BP systolic 124–146; BP diastolic 59–73; PULSE 64–71; RESP 15–23; TEMP 36.4; O2SAT 91–94; BMI 31.1
--- NOTE | 2025-06-22 03:14 | EKG_ITS ---
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
--- NOTE | 2025-06-22 03:17 | DI.RAD.S_ITS ---
PROCEDURE: XR CHEST 1V INDICATIONS: chest pain TECHNIQUE: One view of the chest was acquired. COMPARISON: [facility], , XR CHEST 1V, 10/08/2024, 13:08. [facility], , CHEST 1 VIEW, 06/07/2017, 0:37. FINDINGS: Surgical changes and devices: Multiple EKG leads overlie the thorax. Lungs and pleura: Lungs are clear. No pleural effusions or pneumothorax. Mediastinum: Mediastinal contours appear normal. Heart size is normal. Atheromatous plaques are noted thoracic aorta. Bones and chest wall: No suspicious bony abnormalities. Soft tissues appear unremarkable. Multilevel degenerative disc disease noted. Previous lower cervical spine ACDF. IMPRESSION: No acute cardiopulmonary abnormality is seen. Agree with preliminary interpretation by [facility]. Dictated by: Leena Velaqsuez M.D. on 06/22/2025 at 7:38 Approved by: Leena Velasquez M.D. on 06/22/2025 at 7:39
[2025-06-22 03:23] LABS: Add Manual Diff / Slide Review NO; Hematocrit 47.4 % (36-46); Hemoglobin 16.3 g/dL (12.0-16.0); Lymphocytes Absolute Auto 4100 /uL (1100-4500); Mean Corpuscular HGB Conc 34.3 % (30-36); Mean Corpuscular Hemoglobin 34.0 PG (26-34); Mean Corpuscular Volume 99.0 fL (80-100); Platelet Count 198 X10^3/uL (150-400)
--- NOTE | 2025-06-22 03:28 | PC.NURSE ---
Pt ambulatory to restroom without difficulty or assistance
--- NOTE | 2025-06-22 03:31 | ED_ITS ---
HPI - General Adult General Chief complaint: Abdominal Pain Stated complaint: chest pain Time Seen by Provider: 06/22/25 03:16 Source: patient and EMS Mode of arrival: EMS History of Present Illness HPI narrative: 69-year-old female with history of remote cholecystectomy, complains of epigastric area discomfort that awakened her from sleep kind of radiating to the back, feeling lightheaded. Symptoms seemed to be improving.No nausea, vomiting, diaphoresis. No fevers or chills, no recent cough. No known CAD, but has cardiac risk factors of DM, HTN, smoking, age. No prior cardiac testing recalled. Related Data Home Medications ?Medication ?Instructions ?Recorded ?Confirmed aspirin 325 mg tablet 325 mg PO QDAY ##0 07/22/17 05/23/20 Previous Rx's ?Medication ?Instructions ?Recorded hydroxyzine pamoate 25 mg capsule 25 mg PO TID-QID PRN spasms #60 05/23/20 (Vistaril) caps oxycodone-acetaminophen 5 mg-325 2 tab PO Q4-6H PRN pa in #60 tabs 05/23/20 mg tablet (Percocet) aspirin 325 mg tablet,delayed 325 mg PO DAILY #30 tabs 06/22/25 release (Ecotrin) Allergies Allergy/AdvReac Type Severity Reaction Status Date / Time flecainide AdvReac Severe V-TACH Verified 06/22/25 03:21 Patient History Medical History Osteoarthritis Fatty liver Diabetes GERD (gastroesophageal reflux disease) MIGUEL A on CPAP PAF (paroxysmal atrial fibrillation) HTN (hypertension) Depression Arthritis Surgical History Hx of fusion of cervical spine (08/11/19) Status post trigger finger release (~2016) History of cardiac radiofrequency ablation (~01/18/19) Hx of tooth extraction (~04/2014) Hx of cholecystectomy Hx of laminectomy (~1982) History of total left hip arthroplasty (~2012) History of total right hip arthroplasty (~2013) History of lumbar surgery (~1985) History of lumbar spinal fusion (08/10/14) Social History household members: spouse Smoking Status: Current every day smoker alcohol intake: current Smoking Status: Current every day smoker alcohol intake frequency: 3 or more drinks per day Exam Narrative Exam Narrative: GENERAL: Well-developed patient, in mild distress. HEAD: Atraumatic. Normocephalic. EYES: Pupils equal round and reactive. Extraocular motions intact. No scleral icterus. No injection or drainage. ENT: Nose without bleeding, purulent drainage. Throat without erythema, tonsillar hypertrophy or exudate. Airway patent. NECK: Trachea midline. Non tender CARDIOVASCULAR: Regular rate and rhythm without murmurs, gallops, or rubs. RESPIRATORY: Clear to auscultation. Breath sounds equal bilaterally. No wheezes, rales, or rhonchi. GASTROINTESTINAL: Abdomen soft, non-tender, nondistended. EXTREMITIES: No edema or joint tenderness. BACK: Nontender without deformity or crepitance. No flank tenderness. NEURO: AOx3. Motor functions grossly nonfocal. SKIN: No rash or erythema of visible areas Initial Vital Signs Initial Vital Signs: Vital Signs Temperature 97.6 F 06/22/25 03:14 Pulse Rate 68 06/22/25 03:14 Respiratory Rate 18 06/22/25 03:14 Blood Pressure 146/73 H 06/22/25 03:14 Pulse Oximetry 94 06/22/25 03:14 Oxygen Delivery Method Room Air 06/22/25 03:14 Scores HEART Score Heart Score history: Slightly Suspicious Heart Score EKG: Normal Heart Score Age: > or = 65 years old Heart Score risk factors: > 3 risk factors or hx of atherosclerotic disease Heart Score troponin: < or = to normal limit Heart Score Total: 4 Course Orders Ordered: ED Orders 06/22/25 03:14 EKG-12 Lead Stat 06/22/25 03:15 Complete Blood Count AUTO DIFF Stat Comprehensive Metabolic Panel Stat Lipase Stat Magnesium Stat NT-proBNP (BNP-Adult 18+) Stat Troponin I Stat 06/22/25 03:17 XR chest 1V Stat EKG-12 Lead Stat 06/22/25 05:15 Troponin I Stat Discontinued Medications Al Hydrox/Mg Hydrox/Simethicone (Mag Hydrox/Alum/Simeth 30 Ml Udc) 30 ml PO NOW ONE Stop: 06/22/25 04:04 Last Admin: 06/22/25 04:29 Dose: 30 ml Documented By: LEI Pantoprazole Sodium (Pantoprazole 40 Mg Vial) 40 mg IV NOW ONE Stop: 06/22/25 04:04 Last Admin: 06/22/25 04:29 Dose: 40 mg Documented By: LS Vital Signs Vital signs: Vital Signs - 8 hr 06/22/25 03:14 06/22/25 03:20 06/22/25 03:36 Temperature 97.6 F Pulse Rate 68 66 71 Respiratory Rate 18 15 21 Blood Pressure 146/73 H Pulse Oximetry 94 94 93 Oxygen Delivery Method Room Air Room Air Room Air 06/22/25 03:37 06/22/25 03:37 06/22/25 04:00 Temperature Pulse Rate 68 64 Respiratory Rate 19 17 Blood Pressure 130/61 Pulse Oximetry 94 92 Oxygen Delivery Method Room Air Room Air 06/22/25 04:00 06/22/25 04:30 06/22/25 04:30 Temperature Pulse Rate 66 Respiratory Rate 21 Blood Pressure 124/59 L 131/60 Pulse Oximetry 91 Oxygen Delivery Method Room Air 06/22/25 05:00 06/22/25 05:00 06/22/25 05:30 Temperature Pulse Rate 66 67 Respiratory Rate 17 20 Blood Pressure 125/63 Pulse Oximetry 92 93 Oxygen Delivery Method 06/22/25 05:30 06/22/25 06:00 06/22/25 06:00 Temperature Pulse Rate 71 Respiratory Rate 23 Blood Pressure 129/64 140/68 Pulse Oximetry 92 Oxygen Delivery Method Medical Decision Making Lab Data Lab results reviewed: Yes I reviewed the patient's lab results. Lab results narrative: White blood cell count 6900, hemoglobin 16.3, platelets adequate. Glucose 113. Normal renal function, serum CO2, electrolytes. Mild transaminases, normal total bilirubin and alkaline phosphatase. Lipase normal. Initial troponin negative/unmeasurable. Urine dip negative. 06/22/25 03:15 06/22/25 03:15 Labs: Lab Results 06/22/25 06/22/25 Range/Units 03:15 05:15 WBC 6.9 (4.5-11.0) X10^3/uL RBC 4.79 (4.0-5.2) X10^6/uL Hgb 16.3 H (12.0-16.0) g/dL Hct 47.4 H (36-46) % MCV 99.0 (80-100) fL MCH 34.0 (26-34) PG MCHC 34.3 (30-36) % RDW 13.0 (11.6-14.8) % Plt Count 198 (150-400) X10^3/uL Neut % (Auto) 32.5 L (50-75) % Lymph % (Auto) 59.0 H (25-40) % [place] % (Auto) 6.2 (3-14) % Eos % (Auto) 2.1 (2-4) % Baso % (Auto) 0.2 (0-2) % Neut # (Auto) 2300 (5771-6390) /uL Lymph # (Auto) 4100 (9021-2424) /uL [place] # (Auto) 400 (0-900) /uL Eos # (Auto) 100 (0-450) /uL Baso # (Auto) 0 (0-100) /uL Sodium 142 (137-145) mmol/L Potassium 3.9 (3.4-5.1) mmol/L Chloride 106 (98-107) mmol/L Carbon Dioxide 26 (22-32) mmol/L BUN 14 (7-17) mg/dL Creatinine 0.65 (0.52-1.04) mg/dL Estimated GFR > 60 (>60) mL/min BUN/Creatinine Ratio 21.5 (6-22) Glucose 113 H (70-99) mg/dL Calcium 10.1 (8.4-10.2) mg/dL Magnesium 2.1 (1.6-2.3) mg/dL Total Bilirubin 0.5 (0.2-1.3) mg/dL AST 55 H (14-36) IU/L ALT 35 H (<35) IU/L Alkaline Phosphatase 82 (38-126) U/L Troponin I < 0.012 < 0.012 (0.01-0.034) ng/mL NT-Pro-B Natriuret Pep 43 (<125) pg/mL Total Protein 7.5 (6.3-8.2) g/dL Albumin 4.8 (3.5-5.0) g/dL Globulin 2.7 (1.7-4.1) g/dL Albumin/Globulin Ratio 1.8 (1.0-2.8) Lipase 363 H (23-300) U/L Urine Dip Bedside Urine Glucose Negative Bedside Urine Bilirubin - Negative Bedside Urine Ketone - Negative Urine Specific Goff 1.010 Bedside Urine Occult Blood - Negative Bedside Urine pH 6.0 Bedside Urine Protein - Negative Bedside Urine Urobilinogen - Negative Bedside Urine Nitrite - Negative Bedside Urine Leukocytes - Negative Esterase Point of care testing: Urine Dip Bedside Urine Glucose Negative Bedside Urine Bilirubin - Negative Bedside Urine Ketone - Negative Urine Specific G[place] 1.010 Bedside Urine Occult Blood - Negative Bedside Urine pH 6.0 Bedside Urine Protein - Negative Bedside Urine Urobilinogen - Negative Bedside Urine Nitrite - Negative Bedside Urine Leukocytes - Negative Esterase Imaging Data Chest x-ray: My Impression: No obvious infiltrates or cardiomegaly, no pneumothorax, no free air under the diaphragm. ED wet read. ECG Data Attestation: I personally reviewed and interpreted this ECG as follows: Interpretation: 0316, normal sinus rhythm with rate of 74, no obvious ST segment elevation or depression changes. NM 188, QRS 106, QTC 479. [facility] Narrative Medical decision making narrative: 69-year-old female with no known CAD, history of remote gallbladder removal, had epigastric pain that awakened her sleep, radiating straight back. Multiple cardiac risk factors, no known coronary artery disease, can not recall prior coronary stress testing. Onset symptoms was advised by a friend to take oral aspirin, took full tablet chewable aspirin. Symptoms improved during transport by EMS. Given nausea medications but no nitroglycerin or other treatments during transport. Slight residual pain after arrival. Heart score = 4 EKG shows normal sinus rhythm with rate of 74, no obvious acute ischemic changes. Chest x-ray, no acute changes obvious. ED wet read. No acute changes on radiology report, see radiology report. Lab data: White blood cell count 6900, hemoglobin 16.3, platelets adequate. Glucose 113. Normal renal function, serum CO2, electrolytes. Mild transaminases, normal total bilirubin and alkaline phosphatase. Lipase normal. Initial troponin negative/unmeasurable. Urine dip negative. Interval repeat troponin also negative/unmeasurable. Consider admission, heart score 4, case discussed with Dr. Juan Daniel okeefe. Patient decided however she wants to go home. Case discussed with cardiology who had been paged, patient now deciding to go home. He can see patient in follow up for further testing as an outpatient. Encouraged to consider taking aspirin daily. Return precautions discussed. Discharge Plan Departure Patient Disposition: Home Clinical Impression: Chest pain Activity Restrictions/Additional Instructions: Chest pain. EKG and serial blood tests not suggestive of heart attack at this time. However you do have multiple risk factors for coronary artery disease of the heart vessels that include your diabetes, hypertension, and smoking and age. You would be reasonable to have admission and stress testing now. You elected to go home for now, and refer further evaluation and testing as an outpatient for now. Take aspirin daily for now. Case was discussed with septic tank cleaner on- call Dr. Frances who was aware of your decision to go home for now, and can see you in close follow up early this next week to arrange further testing as an outpatient. Return earlier to this/nearest emergency department for any change worsening symptoms or any concerns prior to that clinic evaluation. Prescriptions: New aspirin [Ecotrin] 325 mg tablet,delayed release (DR/EC) 325 mg PO DAILY Qty: 30 0RF No Action aspirin 325 MG tablet 325 mg PO QDAY Qty: 0 oxycodone-acetaminophen [Percocet] 5-325 mg tablet 2 tab PO Q4-6H PRN (Reason: pain) Qty: 60 0RF hydroxyzine pamoate [Vistaril] 25 mg capsule 25 mg PO TID-QID PRN (Reason: spasms) Qty: 60 0RF Referrals: Carroll Frances MD [Physician, Cardiology] Tennille Wilkinson ARNP [Primary Care Provider, Medical] Stand Alone Forms: Patient Portal/API
[2025-06-22 03:45] LABS: Alanine Aminotransferase 35 IU/L (<35); Albumin 4.8 g/dL (3.5-5.0); Albumin Globulin Ratio 1.8 (1.0-2.8); Alkaline Phosphatase 82 U/L (38-126); Blood Urea Nitrogen 14 mg/dL (7-17); Calcium 10.1 mg/dL (8.4-10.2); Carbon Dioxide 26 mmol/L (22-32); Chloride 106 mmol/L (98-107); Estimated Glomerular Filt Rate > 60 mL/min (>60); Globulin 2.7 g/dL (1.7-4.1); Glucose 113 mg/dL (70-99); HEMOLYSIS < 15 (0-50); Lipase 363 U/L (23-300); Magnesium 2.1 mg/dL (1.6-2.3); Potassium 3.9 mmol/L (3.4-5.1); Sodium 142 mmol/L (137-145); Total Protein 7.5 g/dL (6.3-8.2)
[2025-06-22 03:57] LABS: NT-proBNP (BNP-Adult 18+) 43 pg/mL (<125); Troponin I < 0.012 ng/mL (0.01-0.034)
--- NOTE | 2025-06-22 04:08 | PC.NURSE ---
Dr. Way in to examine pt at this time
[2025-06-22] MEDS: MAG HYDROX/ALUM/SIMETH 30 ML UDC PO (04:29)
[2025-06-22] MEDS: PANTOPRAZOLE 40 MG VIAL IV (04:29)
[2025-06-22 05:51] LABS: Troponin I < 0.012 ng/mL (0.01-0.034)
== END 2025-06-22 06:23 | disposition home or self-care (01) ==
PROVIDERS: Emergency Provider Emergency Medicine; Family Provider Nurse Practitioner; PCP Nurse Practitioner
DX: R07.9 Chest pain, unspecified (principal); I10 Essential (primary) hypertension; F17.200 Nicotine dependence, unspecified, uncomplicated
CPT/HCPCS: 36415; 71045; 80053; 81003; 83690; 83735; 83880; 84484; 85025; 93005; 96374; 99284; J2470